=== PATIENT | male | born 1975 | race Caucasian/White ===

== ENCOUNTER 2020-07-31 12:46 | Inpatient (IN) | payer OTHER ==
[~2020-07-31] VITALS: Ht 185.4 cm; Wt 89.4 kg
[~2020-07-31 12:46] MED LIST: CARAFATE1 GM PO; CARVEDILOL12.5 MG PO; CATAPRES0.1 MG PO; CREON 12,000 U1 EACH PO; GEMFIBROZIL600 MG PO; HABITROL7 MG TOP; IBUPROFEN800 MG PO; LANTUS **100 UNITS/ SC; LANTUS100 UNIT/1 SC; LOPID600 MG PO; M.V.I. ADULT VIA5 ML PO; MEN UNDER 50 M1 EACH PO; NORCO 5-325 TA1 EACH PO; NORVASC5 MG PO; NOVOLOG; NOVOLOG VI100 UNIT/1 SC; OMEPRAZOLE40 MG PO; ONDANSETRON HCL4 MG PO; ONDANSETRON ODT4 MG PO; PERCOCET 10-321 EACH PO; PHENERGAN25 M1 PO; PRILOSEC20 MG PO; PRINIVIL20 MG PO; TOPROL XL 50 MG50 MG PO; TRAMADOL HCL50 MG PO; TRESIBA FL100 UNIT/1 SC; TRESIBA100 UNIT/1 SC; VITAMIN D5000 UNIT PO; ZOFRAN4 MG PO; [UNRECOGNIZED DRUG - OTHER] PO
[2020-07-31 13:31] LABS: BASOPHIL 0.7 % (0-2); EOSINOPHIL 2.5 % (0-5); HCT 44.1 % (42.0-52.0); HGB 14.4 g/dl (13.2-18.0); LYMPHOCYTE 24.7 % (15-48); MCH 27.8 pg (25.0-31.0); MCHC 32.7 g/dL (32.0-36.0); MCV 85.1 fL (78.0-100.0); MONOCYTE 8.8 % (0-12); MPV 10.3 fL (6.0-9.5); NEUTROPHIL 63.1 % (41-80); NRBC 0; PLT 194 K/uL (150-400); RBC 5.18 M/uL (4.70-6.00); WBC 8.9 K/uL (4.0-10.5)
[2020-07-31 14:05] LABS: BILIRUBIN - TOTAL 0.8 mg/dL (0.2-1.0); BUN/CREAT RATIO (CALC) 17.6 RATIO; CREATININE 0.68 mg/dL (0.67-1.17); GLOBULIN (CALCULATION) 3.9 g/dL; POTASSIUM 3.3 mmol/L (3.5-5.1); TOTAL PROTEIN 6.9 g/dL (6.4-8.2)
[2020-07-31 14:19] LABS: BILIRUBIN 2+ mg/dL (NEGATIVE); BLOOD NEGATIVE Ery/uL (NEGATIVE); CLARITY CLEAR (CLEAR); GLUCOSE (U) TRACE mg/dL (NORMAL); LEUKOCYTES NEGATIVE Leu/uL (NEGATIVE); NITRITE POSITIVE (NEGATIVE); PROTEIN 1+ mg/dL (NEGATIVE); SPECIFIC GRAVITY >=1.030 (1.001-1.030)
[2020-07-31 14:24] LABS: COLOR AMBER (YELLOW)
[2020-07-31 14:26] LABS: BACTERIA TRACE; MUCOUS LARGE; SQUAMOUS EPITHELIAL CELLS RARE; URINARY WBC RARE
[2020-07-31 18:01] LABS: MARIJUANA (THC) POSITIVE (NEGATIVE); OXYCODONE POSITIVE (NEGATIVE)
[2020-07-31 18:02] LABS: AMPHETAMINES NEGATIVE (NEGATIVE); BARBITURATES NEGATIVE (NEGATIVE); ECSTASY (MDMA) NEGATIVE (NEGATIVE); METHADONE NEGATIVE (NEGATIVE); OPIATES NEGATIVE (NEGATIVE)
[2020-08-01 04:03] LABS: EOSINOPHIL 6.2 % (0-5); HCT 39.1 % (42.0-52.0); HGB 12.7 g/dl (13.2-18.0); LYMPHOCYTE 41.8 % (15-48); MCH 28.1 pg (25.0-31.0); MCHC 32.5 g/dL (32.0-36.0); MCV 86.5 fL (78.0-100.0); MONOCYTE 10.9 % (0-12); MPV 10.5 fL (6.0-9.5); NEUTROPHIL 39.9 % (41-80); NRBC 0; PLT 148 K/uL (150-400); RBC 4.52 M/uL (4.70-6.00); RDW 16.7 % (11.5-14.0); WBC 6.2 K/uL (4.0-10.5)
[2020-08-01 04:17] LABS: ALBUMIN 2.5 g/dL (3.4-5.0); BILIRUBIN - TOTAL 0.5 mg/dL (0.2-1.0); BUN/CREAT RATIO (CALC) 15.5 RATIO; CREATININE 0.71 mg/dL (0.67-1.17); GLOBULIN (CALCULATION) 3.3 g/dL; MAGNESIUM 1.4 mg/dL (1.8-2.4); POTASSIUM 3.2 mmol/L (3.5-5.1); TOTAL PROTEIN 5.8 g/dL (6.4-8.2)
[2020-08-02 05:43] LABS: BASOPHIL 1.2 % (0-2); EOSINOPHIL 6.9 % (0-5); HCT 39.2 % (42.0-52.0); HGB 12.6 g/dl (13.2-18.0); LYMPHOCYTE 44.8 % (15-48); MCHC 32.1 g/dL (32.0-36.0); MCV 87.1 fL (78.0-100.0); MONOCYTE 11.2 % (0-12); MPV 10.6 fL (6.0-9.5); NEUTROPHIL 35.7 % (41-80); NRBC 0; PLT 131 K/uL (150-400); RDW 16.4 % (11.5-14.0); WBC 5.1 K/uL (4.0-10.5)
[2020-08-02 06:10] LABS: ALBUMIN 2.4 g/dL (3.4-5.0); BILIRUBIN - TOTAL 0.5 mg/dL (0.2-1.0); BUN/CREAT RATIO (CALC) 7.7 RATIO; CREATININE 0.65 mg/dL (0.67-1.17); GLOBULIN (CALCULATION) 3.4 g/dL; POTASSIUM 3.8 mmol/L (3.5-5.1); TOTAL PROTEIN 5.8 g/dL (6.4-8.2)
[2020-08-04] MEDS ORDERED: CREON DR 24,001 EACH PO (11:44)
[2020-08-04] MEDS ORDERED: PERCOCET 5-3251 EACH PO ×2 (11:45→11:47)
[2020-08-04 17:11] LABS: IMMUNOGLOBULIN G, QN, SERUM 999 mg/dL (603-1613)
[2020-08-05 16:09] LABS: CHLAMYDIA TRACHOMATIS, NAA Negative (Negative); NEISSERIA GONORRHOEAE, NAA Negative (Negative)
== END 2020-08-04 13:03 | disposition home or self-care (01) | DRG 439 ==
LOC: FER 12:46 → FMS 17:20
PROVIDERS: Emergency Medicine; Nurse Practitioner Family; ADMIT Allergy & Immunology Allergy
DX: K85.80 Other acute pancreatitis without necrosis or infection (principal); N39.0 Urinary tract infection, site not specified; K86.3 Pseudocyst of pancreas; E10.9 Type 1 diabetes mellitus without complications; Z79.899 Other long term (current) drug therapy; Z79.4 Long term (current) use of insulin; K76.0 Fatty (change of) liver, not elsewhere classified; K86.1 Other chronic pancreatitis; Z20.822 Contact with and (suspected) exposure to COVID-19
CPT/HCPCS: 36415; 74181; 76705; 80053; 80061; 80305; 81001; 82150; 82784; 82787; 82962; 83036; 83690; 83735; 85025; 86140; 87088; 87491; 87591; C9113; G0480; J0696; J1170; J1650; J1885; J2270; J2405; J3480; J7030; J7042; J7120; Q9967; U0002

== ENCOUNTER 2020-09-16 23:47 | Inpatient (IN) | payer OTHER ==
[~2020-09-16] VITALS: Ht 185.4 cm; Wt 87.3 kg
[~2020-09-16 23:47] MED LIST changes: +CREON DR 24,001 EACH PO; +PERCOCET 5-3251 EACH PO
[2020-09-17 00:53] LABS: BASOPHIL 0.7 % (0-2); BILIRUBIN 2+ mg/dL (NEGATIVE); BLOOD NEGATIVE Ery/uL (NEGATIVE); CLARITY CLEAR (CLEAR); COLOR YELLOW (YELLOW); GLUCOSE (U) NORMAL (NORMAL); HCT 47.4 % (42.0-52.0); HGB 15.4 g/dl (13.2-18.0); LEUKOCYTES NEGATIVE Leu/uL (NEGATIVE); LYMPHOCYTE 24.7 % (15-48); MCH 28.1 pg (25.0-31.0); MCHC 32.5 g/dL (32.0-36.0); MCV 86.3 fL (78.0-100.0); MONOCYTE 8.9 % (0-12); MPV 9.7 fL (6.0-9.5); NEUTROPHIL 64.4 % (41-80); NITRITE NEGATIVE (NEGATIVE); NRBC 0; PLT 262 K/uL (150-400); PROTEIN 1+ mg/dL (NEGATIVE); RBC 5.49 M/uL (4.70-6.00); RDW 15.1 % (11.5-14.0); SPECIFIC GRAVITY >=1.030 (1.001-1.030); UROBILINOGEN 0.2 mg/dL (0.2-1.0); WBC 11.4 K/uL (4.0-10.5)
[2020-09-17 01:00] LABS: BACTERIA TRACE; URINARY RBC RARE
[2020-09-17 01:06] LABS: ALBUMIN 3.6 g/dL (3.4-5.0); BUN/CREAT RATIO (CALC) 16.8 RATIO; CREATININE 1.31 mg/dL (0.67-1.17); GLOBULIN (CALCULATION) 5.5 g/dL; POTASSIUM 4.7 mmol/L (3.5-5.1); TOTAL PROTEIN 9.1 g/dL (6.4-8.2)
[2020-09-17 03:48] LABS: BUN/CREAT RATIO (CALC) 18.9 RATIO; CREATININE 1.27 mg/dL (0.67-1.17); POTASSIUM 4.5 mmol/L (3.5-5.1)
[2020-09-17] MEDS ORDERED: TRESIBA FL200 UNIT/1 SC (06:10)
[2020-09-17] MEDS ORDERED: NOVOLOG VI100 UNIT/1 SQ (06:10)
[2020-09-18 05:09] LABS: HCT 37.9 % (42.0-52.0); MCH 28.8 pg (25.0-31.0); MCHC 34.3 g/dL (32.0-36.0); MPV 9.7 fL (6.0-9.5); RBC 4.51 M/uL (4.70-6.00); RDW 14.6 % (11.5-14.0); WBC 9.4 K/uL (4.0-10.5)
[2020-09-18 05:34] LABS: BUN/CREAT RATIO (CALC) 11.7 RATIO; CREATININE 0.6 mg/dL (0.67-1.17); POTASSIUM 3.4 mmol/L (3.5-5.1)
--- NOTE | 2020-09-19 17:51 | NUR ---
[address] BANDA REGARDING PATIENT CONTINUED C/O PAIN. CURRENTLY STILL 12/10. REQUESTED ZOFRAN WHICH WAS GIVEN FOR C/O NAUSEA. DR. BANDA STATES HE WILL ORDER A GI COCKTAIL. ASKED IF PATIENT'S HR IS ELEVATED - CURRENTLY 71 AND ASKED IF PATIENT IS REQUESTING PAIN MEDS WHEN DUE. PATIENT DOES CALL OUT APPROXIMATELY AT THE 4 HOUR JAMMIE WHEN MEDICATION CAN BE GIVEN.
[2020-09-20 04:00] LABS: HGB 12.8 g/dl (13.2-18.0); MCH 28.8 pg (25.0-31.0); MCHC 34.6 g/dL (32.0-36.0); MCV 83.3 fL (78.0-100.0); MPV 10.5 fL (6.0-9.5); RBC 4.44 M/uL (4.70-6.00); RDW 14.4 % (11.5-14.0); WBC 6.3 K/uL (4.0-10.5)
[2020-09-20 04:21] LABS: BUN/CREAT RATIO (CALC) 3.5 RATIO; CREATININE 0.57 mg/dL (0.67-1.17); POTASSIUM 2.9 mmol/L (3.5-5.1)
[2020-09-20] MEDS ORDERED: ZOFRAN4 M1 PO (09:25)
== END 2020-09-20 10:30 | disposition home or self-care (01) | DRG 438 ==
LOC: FER 23:47 → FICU 09-17 04:22 → FTCU 09-19 13:14
PROVIDERS: Emergency Medicine Emergency Medical Services; Hospitalist; ADMIT Internal Medicine
DX: K85.80 Other acute pancreatitis without necrosis or infection (principal); E10.10 Type 1 diabetes mellitus with ketoacidosis without coma; K86.3 Pseudocyst of pancreas; K86.1 Other chronic pancreatitis; I10 Essential (primary) hypertension; E78.5 Hyperlipidemia, unspecified; F17.210 Nicotine dependence, cigarettes, uncomplicated; K76.0 Fatty (change of) liver, not elsewhere classified; Z98.890 Other specified postprocedural states; Z79.899 Other long term (current) drug therapy
CPT/HCPCS: 36415; 36600; 80048; 80053; 81001; 82150; 82803; 82962; 83605; 83615; 83690; 84145; 85025; 94010; 94762; C9113; J1170; J1650; J1885; J2405; J2550; J7030; Q0169; Q9967; U0002

== ENCOUNTER 2020-10-24 09:06 | Inpatient (IN) | payer OTHER ==
[~2020-10-24 09:06] MED LIST changes: +NOVOLOG VI100 UNIT/1 SQ; +TRESIBA FL200 UNIT/1 SC; +ZOFRAN4 M1 PO
[2020-10-24 09:52] LABS: BASOPHIL 0.6 % (0-2); HCT 41.9 % (42.0-52.0); HGB 14.1 g/dl (13.2-18.0); LYMPHOCYTE 33.9 % (15-48); MCH 28.3 pg (25.0-31.0); MCHC 33.7 g/dL (32.0-36.0); MONOCYTE 10.9 % (0-12); MPV 10.2 fL (6.0-9.5); NEUTROPHIL 49.4 % (41-80); NRBC 0; PLT 146 K/uL (150-400); RBC 4.99 M/uL (4.70-6.00); RDW 19.6 % (11.5-14.0); WBC 6.4 K/uL (4.0-10.5)
[2020-10-24 10:04] LABS: ALBUMIN 2.4 g/dL (3.4-5.0); BILIRUBIN - TOTAL 0.9 mg/dL (0.2-1.0); BUN/CREAT RATIO (CALC) 10.8 RATIO; CREATININE 0.74 mg/dL (0.67-1.17); GLOBULIN (CALCULATION) 3.7 g/dL; POTASSIUM 3.6 mmol/L (3.5-5.1); TOTAL PROTEIN 6.1 g/dL (6.4-8.2)
[2020-10-24 10:39] LABS: BILIRUBIN 2+ mg/dL (NEGATIVE); BLOOD NEGATIVE Ery/uL (NEGATIVE); CLARITY CLEAR (CLEAR); COLOR AMBER (YELLOW); GLUCOSE (U) NORMAL (NORMAL); LEUKOCYTES NEGATIVE Leu/uL (NEGATIVE); NITRITE POSITIVE (NEGATIVE); PROTEIN 2+ mg/dL (NEGATIVE); SPECIFIC GRAVITY 1.025 (1.001-1.030)
[2020-10-24 10:44] LABS: BACTERIA TRACE
[2020-10-24 10:45] LABS: MUCOUS LARGE
[2020-10-24 12:52] LABS: CORONAVIRUS 2019 SARS-COV-2 NEGATIVE (NEGATIVE); INFLUENZA A NAA NEGATIVE (NEGATIVE)
[2020-10-25 05:38] LABS: BASOPHIL 0.6 % (0-2); EOSINOPHIL 7.7 % (0-5); HCT 38.1 % (42.0-52.0); HGB 12.6 g/dl (13.2-18.0); LYMPHOCYTE 42.3 % (15-48); MCH 28.1 pg (25.0-31.0); MCHC 33.1 g/dL (32.0-36.0); MCV 84.9 fL (78.0-100.0); MONOCYTE 8.5 % (0-12); MPV 10.1 fL (6.0-9.5); NEUTROPHIL 40.7 % (41-80); NRBC 0; PLT 117 K/uL (150-400); RBC 4.49 M/uL (4.70-6.00); RDW 18.5 % (11.5-14.0); WBC 5.1 K/uL (4.0-10.5)
[2020-10-25 06:08] LABS: BILIRUBIN - TOTAL 0.7 mg/dL (0.2-1.0); BUN/CREAT RATIO (CALC) 8.7 RATIO; CREATININE 0.69 mg/dL (0.67-1.17); FOLIC ACID (SERUM) 17.7 ng/mL (8.6-58.9); MAGNESIUM 0.9 mg/dL (1.8-2.4); POTASSIUM 2.8 mmol/L (3.5-5.1)
--- NOTE | 2020-10-25 14:33 | NUR ---
[facility] will not allow documentation of humulin R related to technology error. HUMULIN R 6 UNITS GIVEN AT 1423. VERIFIED AND COSIGNED BY PAGE OCONNOR. GLUCOSE 177, INSULIN ADMIT PER ORDER.
[2020-10-25 17:59] LABS: BUN/CREAT RATIO (CALC) 7.6 RATIO; CREATININE 0.66 mg/dL (0.67-1.17); MAGNESIUM 1.4 mg/dL (1.8-2.4); POTASSIUM 3.8 mmol/L (3.5-5.1)
--- NOTE | 2020-10-26 03:11 | NUR ---
patient has refused several blood sugar checks this shift, refused his insulin at HS. blood sugar this am at 0300 was 242. MANAGER FINANCE notified.
[2020-10-26 06:49] LABS: BASOPHIL 0.9 % (0-2); EOSINOPHIL 5.8 % (0-5); HCT 37.7 % (42.0-52.0); HGB 12.3 g/dl (13.2-18.0); LYMPHOCYTE 41.7 % (15-48); MCHC 32.6 g/dL (32.0-36.0); MCV 85.9 fL (78.0-100.0); MONOCYTE 9.6 % (0-12); MPV 10.1 fL (6.0-9.5); NEUTROPHIL 41.8 % (41-80); NRBC 0; PLT 110 K/uL (150-400); RBC 4.39 M/uL (4.70-6.00); RDW 18.4 % (11.5-14.0); WBC 4.5 K/uL (4.0-10.5)
[2020-10-26 06:51] LABS: BUN/CREAT RATIO (CALC) 6.1 RATIO; CREATININE 0.66 mg/dL (0.67-1.17); MAGNESIUM 1.6 mg/dL (1.8-2.4); POTASSIUM 4.6 mmol/L (3.5-5.1)
--- NOTE | 2020-10-26 15:33 | NUR ---
10/26/20 Mr. Portillo and his girlfriend share a home together. He is currently unemployed, yet reports to have savings to support himself. Mr. Portillo has mainained his sobriety since Jul 2019. - No discharge needs are anticipated.
--- NOTE | 2020-10-26 17:23 | NUR ---
PATIENT ARRIVED FROM TCU, VERY COOPERATIVE AND PLEASENT. DID BECOME UPSET WHEN HE DID NOT GET HIS VAPES TO USE IN ROOM IMMEDIATELY. EXPLAINED THAT I HAD TO WAIT FOR PHARMACY TO BRING OUT. ONCE THEY WERE BROUGHT THEY WERE SCANNED AND GIVEN TO PATIENT
[2020-10-27] MEDS ORDERED: PERCOCET 5-3251 EACH PO (11:58)
[2020-10-27] MEDS ORDERED: ONDANSETRON ODT4 MG PO (11:58)
== END 2020-10-27 12:56 | disposition home or self-care (01) | DRG 439 ==
LOC: FER 09:06 → FMS 12:02 → FICU 10-25 02:38 → FTCU 10-25 15:56 → FMS 10-26 09:57
PROVIDERS: Emergency Medicine; ADMIT Internal Medicine
DX: K85.90 Acute pancreatitis without necrosis or infection, unspecified (principal); K86.3 Pseudocyst of pancreas; N39.0 Urinary tract infection, site not specified; K86.1 Other chronic pancreatitis; F17.210 Nicotine dependence, cigarettes, uncomplicated; E11.9 Type 2 diabetes mellitus without complications; I10 Essential (primary) hypertension; Z20.822 Contact with and (suspected) exposure to COVID-19; E78.5 Hyperlipidemia, unspecified; K76.0 Fatty (change of) liver, not elsewhere classified; E87.6 Hypokalemia; E83.42 Hypomagnesemia; E83.51 Hypocalcemia; Z98.890 Other specified postprocedural states; Z79.899 Other long term (current) drug therapy
CPT/HCPCS: 36415; 80048; 80053; 81001; 82150; 82746; 82962; 83605; 83690; 83735; 84100; 85025; 87088; 87339; 94010; C9113; J0610; J0696; J1170; J1650; J2270; J2405; J2550; J3411; J3475; J3480; J7030; J7070; Q9967; U0002

== ENCOUNTER 2020-11-05 13:51 | Inpatient (IN) | payer OTHER ==
[2020-11-05 16:25] LABS: BASOPHIL 0.9 % (0-2); EOSINOPHIL 1.4 % (0-5); HCT 50.3 % (42.0-52.0); HGB 16.8 g/dl (13.2-18.0); LYMPHOCYTE 40.8 % (15-48); MCH 28.4 pg (25.0-31.0); MCHC 33.4 g/dL (32.0-36.0); MCV 85.1 fL (78.0-100.0); MONOCYTE 8.1 % (0-12); MPV 9.5 fL (6.0-9.5); NEUTROPHIL 48.3 % (41-80); NRBC 0; PLT 351 K/uL (150-400); RBC 5.91 M/uL (4.70-6.00); RDW 20.6 % (11.5-14.0); WBC 7.7 K/uL (4.0-10.5)
[2020-11-05 17:42] LABS: ALBUMIN 2.9 g/dL (3.4-5.0); BILIRUBIN - TOTAL 0.5 mg/dL (0.2-1.0); CREATININE 0.78 mg/dL (0.67-1.17); GLOBULIN (CALCULATION) 5.2 g/dL; POTASSIUM 3.7 mmol/L (3.5-5.1); TOTAL PROTEIN 8.1 g/dL (6.4-8.2)
--- NOTE | 2020-11-06 00:14 | NUR ---
2315 REPORT RECEIVED FROM Serg DIEHL RN.
[2020-11-06 06:40] LABS: BASOPHIL 1.5 % (0-2); EOSINOPHIL 5.4 % (0-5); HCT 40.4 % (42.0-52.0); HGB 13.2 g/dl (13.2-18.0); LYMPHOCYTE 36.3 % (15-48); MCH 28.5 pg (25.0-31.0); MCHC 32.7 g/dL (32.0-36.0); MCV 87.3 fL (78.0-100.0); MONOCYTE 10.7 % (0-12); MPV 9.4 fL (6.0-9.5); NRBC 0; PLT 224 K/uL (150-400); RBC 4.63 M/uL (4.70-6.00); WBC 6.7 K/uL (4.0-10.5)
[2020-11-06 06:59] LABS: ALBUMIN 1.9 g/dL (3.4-5.0); BILIRUBIN - TOTAL 0.6 mg/dL (0.2-1.0); BUN/CREAT RATIO (CALC) 8.6 RATIO; CREATININE 0.7 mg/dL (0.67-1.17); GLOBULIN (CALCULATION) 3.5 g/dL; POTASSIUM 3.9 mmol/L (3.5-5.1)
[2020-11-06 07:00] LABS: TOTAL PROTEIN 5.4 g/dL (6.4-8.2)
[2020-11-06 13:13] LABS: HCT 38.9 % (42.0-52.0); HGB 12.6 g/dl (13.2-18.0); MCH 28.4 pg (25.0-31.0); MCHC 32.4 g/dL (32.0-36.0); MCV 87.8 fL (78.0-100.0); MPV 9.4 fL (6.0-9.5); RBC 4.43 M/uL (4.70-6.00); RDW 19.7 % (11.5-14.0); WBC 6.6 K/uL (4.0-10.5)
[2020-11-07 05:59] LABS: BASOPHIL 1.3 % (0-2); EOSINOPHIL 8.6 % (0-5); HCT 37.2 % (42.0-52.0); HGB 12.1 g/dl (13.2-18.0); LYMPHOCYTE 41.8 % (15-48); MCH 28.7 pg (25.0-31.0); MCHC 32.5 g/dL (32.0-36.0); MCV 88.2 fL (78.0-100.0); MONOCYTE 10.3 % (0-12); NEUTROPHIL 37.8 % (41-80); NRBC 0; PLT 167 K/uL (150-400); RBC 4.22 M/uL (4.70-6.00); RDW 18.9 % (11.5-14.0); WBC 5.5 K/uL (4.0-10.5)
[2020-11-07 06:15] LABS: BUN/CREAT RATIO (CALC) 8.8 RATIO; CREATININE 0.68 mg/dL (0.67-1.17); MAGNESIUM 1.1 mg/dL (1.8-2.4); PHOSPHORUS 3.4 mg/dL (2.6-4.7); POTASSIUM 3.5 mmol/L (3.5-5.1)
[2020-11-08 05:43] LABS: BASOPHIL 1.2 % (0-2); EOSINOPHIL 7.4 % (0-5); HCT 38.6 % (42.0-52.0); HGB 12.6 g/dl (13.2-18.0); LYMPHOCYTE 44.1 % (15-48); MCH 28.2 pg (25.0-31.0); MCHC 32.6 g/dL (32.0-36.0); MCV 86.4 fL (78.0-100.0); MONOCYTE 10.7 % (0-12); MPV 10.1 fL (6.0-9.5); NEUTROPHIL 36.4 % (41-80); NRBC 0; PLT 171 K/uL (150-400); RBC 4.47 M/uL (4.70-6.00); RDW 17.9 % (11.5-14.0); WBC 5.8 K/uL (4.0-10.5)
[2020-11-08 06:03] LABS: BUN/CREAT RATIO (CALC) 4.5 RATIO; CREATININE 0.66 mg/dL (0.67-1.17); MAGNESIUM 1.3 mg/dL (1.8-2.4); PHOSPHORUS 3.6 mg/dL (2.6-4.7); POTASSIUM 3.6 mmol/L (3.5-5.1)
--- NOTE | 2020-11-08 13:24 | NUR ---
DISCHARGE ORDERS BY DR. ARIZMENDI, PT IS OFF IV FLUIDS SINCE THIS AM, APPETITE IS GOOD. ATE 100% OF BREAKFAST AND LUNCH. 1200 GLUCOSE 388, D5NS AT 150CC/HR STOPPED PER DR. HENRY. 5 UNITS REGULAR INSULIN GIVEN TO PATIENT. PATIENT UPSET, STATES WE ARE NOT CONTROLLING HIS SUGAR WELL ENOUGH. PT HAS HISTORY OF VERY LABILE BLOOD GLUCOSE. DOWN TO 27 2 NIGHTS PRIOR. RE CHECK OF GLUCOSE 1 HOUR POST INSULIN IS 260. PT AGREEABLE AND APOLIGIZED. PT READY FOR DISCHARGE, EDUCATED ON MEDICATIONS. PT HAS NO NEW MEDICATIONS, NO QUESTIONS PER PATIENT. UNDERSTANDING OF FOLLOW UP APPT NEED WITH PCP. STATES "I HAVE AN APPT ALREADY ON MONDAY" PIV FROM [facility] REMOVED AND DRESSED WITH GAUZE AND TAPE. PT [id number] AND IS AWAITING RIDE FROM FAMILY MEMBER.
[2020-11-08] MEDS ORDERED: MAG-OXIDE 400M400 MG PO (18:06)
== END 2020-11-08 13:36 | disposition home or self-care (01) | DRG 439 ==
LOC: FER 13:51 → FMS 19:14
PROVIDERS: Nurse Practitioner; Nurse Practitioner Family; ADMIT Internal Medicine
DX: K85.90 Acute pancreatitis without necrosis or infection, unspecified (principal); K86.3 Pseudocyst of pancreas; K86.1 Other chronic pancreatitis; E10.649 Type 1 diabetes mellitus with hypoglycemia without coma; I10 Essential (primary) hypertension; K21.9 Gastro-esophageal reflux disease without esophagitis; E83.42 Hypomagnesemia; F17.200 Nicotine dependence, unspecified, uncomplicated; E78.5 Hyperlipidemia, unspecified; K76.0 Fatty (change of) liver, not elsewhere classified; Z20.822 Contact with and (suspected) exposure to COVID-19; Z79.899 Other long term (current) drug therapy; Z98.890 Other specified postprocedural states
CPT/HCPCS: 36415; 80048; 80053; 80061; 82150; 82962; 83690; 83735; 84100; 85025; C9113; J0610; J1170; J1650; J2405; J3475; J7030; J7042; J7120; Q9967; U0002

== ENCOUNTER 2020-12-24 10:00 | Emergency (ER) | payer OTHER ==
[~2020-12-24 10:00] MED LIST changes: +MAG-OXIDE 400M400 MG PO
[2020-12-24 10:37] LABS: BASOPHIL 0.8 % (0-2); EOSINOPHIL 2.1 % (0-5); HCT 40.9 % (42.0-52.0); HGB 13.8 g/dl (13.2-18.0); LYMPHOCYTE 35.7 % (15-48); MCH 29.2 pg (25.0-31.0); MCHC 33.7 g/dL (32.0-36.0); MCV 86.7 fL (78.0-100.0); MONOCYTE 13.7 % (0-12); MPV 9.7 fL (6.0-9.5); NEUTROPHIL 46.9 % (41-80); NRBC 0; PLT 229 K/uL (150-400); RBC 4.72 M/uL (4.70-6.00); RDW 17.5 % (11.5-14.0); WBC 6.6 K/uL (4.0-10.5)
[2020-12-24 10:43] LABS: BILIRUBIN 1+ mg/dL (NEGATIVE); BLOOD NEGATIVE Ery/uL (NEGATIVE); CLARITY CLEAR (CLEAR); GLUCOSE (U) NORMAL (NORMAL); LEUKOCYTES NEGATIVE Leu/uL (NEGATIVE); NITRITE NEGATIVE (NEGATIVE); PROTEIN 1+ mg/dL (NEGATIVE); SPECIFIC GRAVITY 1.025 (1.001-1.030)
[2020-12-24 10:47] LABS: COLOR AMBER (YELLOW)
[2020-12-24 10:51] LABS: BACTERIA TRACE; SQUAMOUS EPITHELIAL CELLS RARE
[2020-12-24 10:52] LABS: GRANULAR CASTS TRACE; MUCOUS TRACE; SPERM PRESENT
[2020-12-24 10:57] LABS: ALBUMIN 2.4 g/dL (3.4-5.0); BILIRUBIN - TOTAL 0.4 mg/dL (0.2-1.0); BUN/CREAT RATIO (CALC) 10.8 RATIO; CREATININE 0.74 mg/dL (0.67-1.17); GLOBULIN (CALCULATION) 3.9 g/dL; POTASSIUM 3.8 mmol/L (3.5-5.1); TOTAL PROTEIN 6.3 g/dL (6.4-8.2)
== END 2020-12-24 15:53 | disposition home or self-care (01) ==
LOC: FER 10:00
PROVIDERS: Emergency Medicine
DX: K86.1 Other chronic pancreatitis (principal); E10.9 Type 1 diabetes mellitus without complications; F17.290 Nicotine dependence, other tobacco product, uncomplicated
CPT/HCPCS: 36415; 80053; 81001; 82009; 82150; 83690; 85025; J1170; J2405; J7030

== ENCOUNTER 2021-01-10 22:29 | Inpatient (IN) | payer OTHER ==
[~2021-01-10] VITALS: Ht 185.4 cm; Wt 79.5 kg
[2021-01-11 00:08] LABS: BASOPHIL 0.7 % (0-2); EOSINOPHIL 0.8 % (0-5); HCT 42.9 % (42.0-52.0); HGB 14.6 g/dl (13.2-18.0); LYMPHOCYTE 25.8 % (15-48); MCH 29.6 pg (25.0-31.0); MCV 86.8 fL (78.0-100.0); MONOCYTE 15.1 % (0-12); MPV 9.6 fL (6.0-9.5); NEUTROPHIL 57.4 % (41-80); NRBC 0; PLT 192 K/uL (150-400); RBC 4.94 M/uL (4.70-6.00); RDW 17.3 % (11.5-14.0); WBC 8.5 K/uL (4.0-10.5)
[2021-01-11 00:21] LABS: ALBUMIN 2.4 g/dL (3.4-5.0); BILIRUBIN - TOTAL 0.6 mg/dL (0.2-1.0); BUN/CREAT RATIO (CALC) 11.1 RATIO; CREATININE 0.72 mg/dL (0.67-1.17); GLOBULIN (CALCULATION) 4.4 g/dL; POTASSIUM 2.8 mmol/L (3.5-5.1); TOTAL PROTEIN 6.8 g/dL (6.4-8.2)
[2021-01-11 00:31] LABS: LACTIC ACID 1.2 mmol/L (0.4-1.9)
[2021-01-11 01:57] LABS: AMPHETAMINES NEGATIVE (NEGATIVE); BARBITURATES NEGATIVE (NEGATIVE); ECSTASY (MDMA) NEGATIVE (NEGATIVE); MARIJUANA (THC) POSITIVE (NEGATIVE); METHADONE NEGATIVE (NEGATIVE); OPIATES POSITIVE (NEGATIVE); OXYCODONE NEGATIVE (NEGATIVE)
[2021-01-11] MEDS ORDERED: NORVASC10 MG PO (04:40)
[2021-01-11] MEDS ORDERED: PRINIVIL20 M1 PO (04:41)
[2021-01-11 09:08] LABS: BILIRUBIN NEGATIVE (NEGATIVE); BLOOD NEGATIVE Ery/uL (NEGATIVE); CLARITY CLEAR (CLEAR); COLOR YELLOW (YELLOW); GLUCOSE (U) TRACE mg/dL (NORMAL); LEUKOCYTES NEGATIVE Leu/uL (NEGATIVE); NITRITE NEGATIVE (NEGATIVE); PROTEIN TRACE (LOW) mg/dL (NEGATIVE)
[2021-01-11 09:26] LABS: CALCIUM OXALATE CRYSTALS MODERATE
[2021-01-11 09:29] LABS: URINARY RBC RARE; URINARY WBC RARE
[2021-01-11 09:53] LABS: MAGNESIUM 1.8 mg/dL (1.8-2.4); POTASSIUM 3.1 mmol/L (3.5-5.1)
[2021-01-12 05:57] LABS: BASOPHIL 0.6 % (0-2); EOSINOPHIL 2.8 % (0-5); HCT 37.3 % (42.0-52.0); HGB 12.5 g/dl (13.2-18.0); LYMPHOCYTE 27.6 % (15-48); MCH 29.2 pg (25.0-31.0); MCHC 33.5 g/dL (32.0-36.0); MCV 87.1 fL (78.0-100.0); MONOCYTE 10.9 % (0-12); MPV 10.2 fL (6.0-9.5); NEUTROPHIL 57.8 % (41-80); NRBC 0; PLT 132 K/uL (150-400); RBC 4.28 M/uL (4.70-6.00); RDW 16.4 % (11.5-14.0); WBC 7.1 K/uL (4.0-10.5)
[2021-01-12 07:10] LABS: ALBUMIN 1.9 g/dL (3.4-5.0); BILIRUBIN - TOTAL 0.5 mg/dL (0.2-1.0); BUN/CREAT RATIO (CALC) 15.3 RATIO; CREATININE 0.59 mg/dL (0.67-1.17); GLOBULIN (CALCULATION) 3.6 g/dL; MAGNESIUM 1.5 mg/dL (1.8-2.4); PHOSPHORUS 3.2 mg/dL (2.6-4.7); POTASSIUM 3.6 mmol/L (3.5-5.1); TOTAL PROTEIN 5.5 g/dL (6.4-8.2)
[2021-01-13 06:25] LABS: BASOPHIL 0.6 % (0-2); EOSINOPHIL 2.1 % (0-5); HCT 41.2 % (42.0-52.0); HGB 13.3 g/dl (13.2-18.0); LYMPHOCYTE 28.5 % (15-48); MCH 28.9 pg (25.0-31.0); MCHC 32.3 g/dL (32.0-36.0); MCV 89.6 fL (78.0-100.0); MPV 10.6 fL (6.0-9.5); NEUTROPHIL 59.5 % (41-80); NRBC 0; PLT 121 K/uL (150-400); RDW 15.9 % (11.5-14.0); WBC 7.2 K/uL (4.0-10.5)
[2021-01-13 06:41] LABS: BUN/CREAT RATIO (CALC) 12.3 RATIO; CREATININE 0.57 mg/dL (0.67-1.17); MAGNESIUM 1.7 mg/dL (1.8-2.4); POTASSIUM 3.9 mmol/L (3.5-5.1)
[2021-01-15 06:32] LABS: BUN/CREAT RATIO (CALC) 10.3 RATIO; CREATININE 0.58 mg/dL (0.67-1.17); POTASSIUM 4.7 mmol/L (3.5-5.1)
[2021-01-15] MEDS ORDERED: NORCO 5-325 TA1 EACH PO (15:06)
[2021-01-15] MEDS ORDERED: PHENERGAN25 M1 PO (15:06)
== END 2021-01-15 15:35 | disposition home or self-care (01) | DRG 439 ==
LOC: FER 22:29 → FMS 01-11 03:17
PROVIDERS: Emergency Medicine; Nurse Practitioner; ADMIT Internal Medicine
DX: K85.90 Acute pancreatitis without necrosis or infection, unspecified (principal); K86.3 Pseudocyst of pancreas; K86.1 Other chronic pancreatitis; E10.9 Type 1 diabetes mellitus without complications; E83.42 Hypomagnesemia; D69.6 Thrombocytopenia, unspecified; E87.6 Hypokalemia; Z20.822 Contact with and (suspected) exposure to COVID-19; E78.5 Hyperlipidemia, unspecified; K76.0 Fatty (change of) liver, not elsewhere classified; F17.210 Nicotine dependence, cigarettes, uncomplicated; Z98.890 Other specified postprocedural states; Z79.899 Other long term (current) drug therapy
CPT/HCPCS: 36415; 80048; 80053; 80305; 81001; 82962; 83036; 83605; 83690; 83735; 84100; 84132; 85025; J1170; J1650; J2270; J2405; J3475; J3480; J7030; J7042; Q9967; U0002

== ENCOUNTER 2021-08-05 20:39 | Emergency (ER) | payer OTHER ==
[~2021-08-05 20:39] MED LIST changes: +NORVASC10 MG PO; +PRINIVIL20 M1 PO
[2021-08-05 21:29] LABS: BASOPHIL 0.2 % (0-2); EOSINOPHIL 0.2 % (0-5); HGB 16.2 g/dl (13.2-18.0); LYMPHOCYTE 38.1 % (15-48); MCH 31.3 pg (25.0-31.0); MCHC 33.8 g/dL (32.0-36.0); MCV 92.8 fL (78.0-100.0); MONOCYTE 7.4 % (0-12); MPV 11.3 fL (6.0-9.5); NEUTROPHIL 53.9 % (41-80); NRBC 0; RBC 5.17 M/uL (4.70-6.00); RDW 14.1 % (11.5-14.0); WBC 9.8 K/uL (4.0-10.5)
[2021-08-05 21:43] LABS: ALBUMIN 2.7 g/dL (3.4-5.0); BILIRUBIN - TOTAL 0.6 mg/dL (0.2-1.0); BUN/CREAT RATIO (CALC) 9.8 RATIO; CREATININE 0.61 mg/dL (0.67-1.17); GLOBULIN (CALCULATION) 3.9 g/dL; POTASSIUM 3.9 mmol/L (3.5-5.1); TOTAL PROTEIN 6.6 g/dL (6.4-8.2)
[2021-08-05 21:48] LABS: PLT 169 K/uL (150-400)
[2021-08-05] MEDS ORDERED: ONDANSETRON ODT4 MG PO (21:56)
[2021-08-05] MEDS ORDERED: OXY-IR 5MG5 MG PO (22:05)
== END 2021-08-05 22:46 | disposition home or self-care (01) ==
LOC: FER 20:39
PROVIDERS: Emergency Medicine
DX: R10.9 Unspecified abdominal pain (principal); R11.2 Nausea with vomiting, unspecified
CPT/HCPCS: 36415; 80053; 83690; 85025; J2405

== ENCOUNTER 2021-08-20 21:26 | Inpatient (IN) | payer OTHER ==
[~2021-08-20] VITALS: Ht 185.4 cm; Wt 67.6 kg
[~2021-08-20 21:26] MED LIST changes: +OXY-IR 5MG5 MG PO
[2021-08-20 22:00] LABS: BASOPHIL 0.7 % (0-2); EOSINOPHIL 0.1 % (0-5); HCT 44.5 % (42.0-52.0); LYMPHOCYTE 23.8 % (15-48); MCH 31.3 pg (25.0-31.0); MCHC 33.7 g/dL (32.0-36.0); MCV 92.9 fL (78.0-100.0); MONOCYTE 9.4 % (0-12); MPV 10.6 fL (6.0-9.5); NEUTROPHIL 65.7 % (41-80); NRBC 0; PLT 191 K/uL (150-400); RBC 4.79 M/uL (4.70-6.00); RDW 12.7 % (11.5-14.0); WBC 9.1 K/uL (4.0-10.5)
[2021-08-20 22:20] LABS: BILIRUBIN 1+ mg/dL (NEGATIVE); BLOOD NEGATIVE Ery/uL (NEGATIVE); CLARITY CLEAR (CLEAR); COLOR YELLOW (YELLOW); GLUCOSE (U) 2+ mg/dL (NORMAL); LEUKOCYTES NEGATIVE Leu/uL (NEGATIVE); NITRITE NEGATIVE (NEGATIVE); PROTEIN NEGATIVE (NEGATIVE); SPECIFIC GRAVITY >=1.030 (1.001-1.030); UROBILINOGEN 0.2 mg/dL (0.2-1.0)
[2021-08-20 22:21] LABS: ALBUMIN 2.7 g/dL (3.4-5.0); BILIRUBIN - TOTAL 0.9 mg/dL (0.2-1.0); BUN/CREAT RATIO (CALC) 23.5 RATIO; CREATININE 1.02 mg/dL (0.67-1.17); GLOBULIN (CALCULATION) 4.2 g/dL; POTASSIUM 4.7 mmol/L (3.5-5.1); TOTAL PROTEIN 6.9 g/dL (6.4-8.2)
[2021-08-21 02:15] LABS: BUN/CREAT RATIO (CALC) 22.9 RATIO; CREATININE 0.83 mg/dL (0.67-1.17); MAGNESIUM 1.3 mg/dL (1.8-2.4); PHOSPHORUS 3.6 mg/dL (2.6-4.7); POTASSIUM 4.2 mmol/L (3.5-5.1)
[2021-08-21 05:08] LABS: BUN/CREAT RATIO (CALC) 20.7 RATIO; CREATININE 0.82 mg/dL (0.67-1.17); POTASSIUM 3.9 mmol/L (3.5-5.1)
[2021-08-21 05:15] LABS: MAGNESIUM 2.5 mg/dL (1.8-2.4)
[2021-08-21 08:07] LABS: CREATININE 0.8 mg/dL (0.67-1.17); POTASSIUM 4.4 mmol/L (3.5-5.1)
[2021-08-21 12:18] LABS: BUN/CREAT RATIO (CALC) 19.7 RATIO; CREATININE 0.76 mg/dL (0.67-1.17)
[2021-08-21] MEDS ORDERED: IBUPROFEN800 MG PO (12:37)
[2021-08-21] MEDS ORDERED: LANTUS **100 UNITS/ SC (12:37)
[2021-08-21] MEDS ORDERED: HUMALOG 75100 UNIT/M SC (12:38)
--- NOTE | 2021-08-21 17:56 | NUR ---
PT WAS ON INSULIN GTT WHEN ARRIVING TO THE FLOOR HOURLY GLUCOSE CHECKS COMPLETED, GTT WAS STOPPED AT 1530 AFTER GETTING 10 UNITS LONG ACTING AND EATING LUNCH. 1600 GLUCOSE CHECK WAS 124 PT RECIEVED 4 UNITS
[2021-08-21 19:22] LABS: BUN/CREAT RATIO (CALC) 17.4 RATIO; CREATININE 0.69 mg/dL (0.67-1.17); POTASSIUM 3.7 mmol/L (3.5-5.1)
[2021-08-22 06:04] LABS: BASOPHIL 0.4 % (0-2); EOSINOPHIL 1.3 % (0-5); HCT 36.2 % (42.0-52.0); HGB 12.1 g/dl (13.2-18.0); LYMPHOCYTE 29.4 % (15-48); MCH 31.2 pg (25.0-31.0); MCHC 33.4 g/dL (32.0-36.0); MCV 93.3 fL (78.0-100.0); MONOCYTE 8.1 % (0-12); MPV 10.2 fL (6.0-9.5); NEUTROPHIL 60.7 % (41-80); NRBC 0; PLT 130 K/uL (150-400); RBC 3.88 M/uL (4.70-6.00); RDW 12.8 % (11.5-14.0); WBC 7.4 K/uL (4.0-10.5)
[2021-08-22 06:25] LABS: BUN/CREAT RATIO (CALC) 11.1 RATIO; CREATININE 0.72 mg/dL (0.67-1.17); POTASSIUM 4.4 mmol/L (3.5-5.1)
[2021-08-23 06:41] LABS: BASOPHIL 0.6 % (0-2); EOSINOPHIL 1.3 % (0-5); HGB 13.5 g/dl (13.2-18.0); LYMPHOCYTE 28.1 % (15-48); MCH 31.9 pg (25.0-31.0); MCHC 34.6 g/dL (32.0-36.0); MCV 92.2 fL (78.0-100.0); MONOCYTE 10.3 % (0-12); MPV 10.6 fL (6.0-9.5); NEUTROPHIL 59.6 % (41-80); NRBC 0; PLT 126 K/uL (150-400); RBC 4.23 M/uL (4.70-6.00); RDW 12.9 % (11.5-14.0); WBC 6.7 K/uL (4.0-10.5)
[2021-08-23 07:28] LABS: CREATININE 0.6 mg/dL (0.67-1.17); POTASSIUM 4.4 mmol/L (3.5-5.1)
[2021-08-23] MEDS ORDERED: ONDANSETRON ODT4 MG PO (10:52)
== END 2021-08-23 10:58 | disposition home or self-care (01) | DRG 638 ==
LOC: FER 21:26 → FOFB 08-21 02:31 → FICU 08-21 02:31 → FMS 08-22 16:21
PROVIDERS: Emergency Medicine; Family Medicine; Nurse Practitioner Acute Care; ADMIT Internal Medicine
DX: E10.10 Type 1 diabetes mellitus with ketoacidosis without coma (principal); K86.1 Other chronic pancreatitis; Z20.822 Contact with and (suspected) exposure to COVID-19; I10 Essential (primary) hypertension; E78.5 Hyperlipidemia, unspecified; K21.9 Gastro-esophageal reflux disease without esophagitis; F17.210 Nicotine dependence, cigarettes, uncomplicated; E83.42 Hypomagnesemia; R19.7 Diarrhea, unspecified; Z79.899 Other long term (current) drug therapy
CPT/HCPCS: 36415; 36600; 80048; 80053; 81003; 82607; 82803; 82962; 83036; 83540; 83550; 83690; 83735; 84100; 85025; J1170; J1650; J1815; J2405; J3475; J3480; J7030; J7050; Q0169; U0002

== ENCOUNTER 2021-11-26 18:16 | Inpatient (IN) | payer OTHER ==
[~2021-11-26] VITALS: Ht 185.4 cm; Wt 65.0 kg
[~2021-11-26 18:16] MED LIST changes: +HUMALOG 75100 UNIT/M SC
[2021-11-26 19:37] LABS: BASOPHIL 0.1 % (0-2); EOSINOPHIL 0 % (0-5); HCT 42.8 % (42.0-52.0); HGB 14.9 g/dl (13.2-18.0); LYMPHOCYTE 9.3 % (15-48); MCH 31.2 pg (25.0-31.0); MCHC 34.8 g/dL (32.0-36.0); MCV 89.5 fL (78.0-100.0); MONOCYTE 4.6 % (0-12); MPV 11.7 fL (6.0-9.5); NEUTROPHIL 85.8 % (41-80); NRBC 0; PLT 349 K/uL (150-400); RBC 4.78 M/uL (4.70-6.00); RDW 14.3 % (11.5-14.0)
[2021-11-26 19:38] LABS: WBC 15.2 K/uL (4.0-10.5)
[2021-11-26 19:46] LABS: ALBUMIN 0.9 g/dL (3.4-5.0); BILIRUBIN - TOTAL 4.7 mg/dL (0.2-1.0); BUN/CREAT RATIO (CALC) 9.9 RATIO; CREATININE 2.42 mg/dL (0.67-1.17); GLOBULIN (CALCULATION) 5.2 g/dL; POTASSIUM 3.4 mmol/L (3.5-5.1); TOTAL PROTEIN 6.1 g/dL (6.4-8.2)
[2021-11-26 20:45] LABS: LACTIC ACID 8.9 mmol/L (0.4-1.9)
[2021-11-26] MEDS ORDERED: HUMALOG100 UNIT/1 SC (23:13)
[2021-11-27 00:30] LABS: BILIRUBIN - DIRECT 2.9 mg/dL (0.00-0.20)
[2021-11-27 01:20] LABS: BILIRUBIN 3+ mg/dL (NEGATIVE); BLOOD TRACE-INTACT Ery/uL (NEGATIVE); CLARITY HAZY (CLEAR); COLOR BROWN (YELLOW); GLUCOSE (U) NORMAL (NORMAL); LEUKOCYTES NEGATIVE Leu/uL (NEGATIVE); NITRITE POSITIVE (NEGATIVE); PROTEIN 1+ mg/dL (NEGATIVE); SPECIFIC GRAVITY 1.025 (1.001-1.030); pH 5.5 (5.0-9.0)
[2021-11-27 01:28] LABS: BACTERIA 2+
[2021-11-27 01:52] LABS: ECSTASY (MDMA) NEGATIVE (NEGATIVE); MARIJUANA (THC) POSITIVE (NEGATIVE); METHADONE NEGATIVE (NEGATIVE); OPIATES NEGATIVE (NEGATIVE)
[2021-11-27 01:53] LABS: AMPHETAMINES NEGATIVE (NEGATIVE); BARBITURATES NEGATIVE (NEGATIVE); OXYCODONE NEGATIVE (NEGATIVE)
[2021-11-27 04:35] LABS: CLARITY (FLUID) TURBID; COLOR (FLUID) YELLOW
[2021-11-27 04:37] LABS: RBC (FLUID) 15000 RBC/uL
[2021-11-27 04:38] LABS: WBC (FLUID) 65300 WBC/uL
[2021-11-27 06:35] LABS: BASOPHIL 0 % (0-2); EOSINOPHIL 0 % (0-5); HGB 12.1 g/dl (13.2-18.0); LYMPHOCYTE 4.3 % (15-48); MCH 31.3 pg (25.0-31.0); MCHC 35.6 g/dL (32.0-36.0); MCV 87.9 fL (78.0-100.0); MONOCYTE 2.6 % (0-12); MPV 11.6 fL (6.0-9.5); NEUTROPHIL 90.3 % (41-80); PLT 323 K/uL (150-400); RBC 3.87 M/uL (4.70-6.00); RDW 14.4 % (11.5-14.0)
[2021-11-27 06:37] LABS: NRBC 0; WBC 32.9 K/uL (4.0-10.5)
[2021-11-27 07:14] LABS: ALBUMIN 1.3 g/dL (3.4-5.0); ALKALINE PHOSHATASE 278 U/L (46-116); ALT 50 U/L (16-63); AST 52 U/L (15-37); BILIRUBIN - TOTAL 3.9 mg/dL (0.2-1.0); BUN 23 mg/dL (7-18); BUN/CREAT RATIO (CALC) 9.3 RATIO; CHLORIDE 97 mmol/L (98-107); CO2 (BICARBONATE) 14 mmol/L (21-32); CREATININE 2.46 mg/dL (0.67-1.17); GLOBULIN (CALCULATION) 4.1 g/dL; GLUCOSE 315 mg/dL (74-106); MAGNESIUM 0.9 mg/dL (1.8-2.4); POTASSIUM 2.8 mmol/L (3.5-5.1); TOTAL PROTEIN 5.4 g/dL (6.4-8.2)
[2021-11-27 07:15] LABS: C-REACTIVE PROTEIN > 18.00 mg/dL (<=0.90)
[2021-11-27 11:17] LABS: INR 3.15 (0.9-1.2); PROTHROMBIN TIME 31.3 SECONDS (11.8-13.4)
[2021-11-27 12:41] LABS: BUN/CREAT RATIO (CALC) 8.1 RATIO; CREATININE 2.58 mg/dL (0.67-1.17); POTASSIUM 2.9 mmol/L (3.5-5.1)
[2021-11-27 15:45] LABS: IRON % SATURATION 25.6 %SAT (20-50)
--- NOTE | 2021-11-27 16:45 | NUR ---
SEND BELONGINGS WITH AIR METHODS, BROWN BAG WITH CARDS, PHONE, PRESCHOOL ASSISTANT DIRECTOR,[employer] CONTACTED NIRMAL VICK GIRLFRIEND ABOUT SENDING BELONGINGS
[2021-11-27 16:49] LABS: BUN 20 mg/dL (7-18); BUN/CREAT RATIO (CALC) 7.7 RATIO; CHLORIDE 96 mmol/L (98-107); CO2 (BICARBONATE) 20 mmol/L (21-32); CREATININE 2.61 mg/dL (0.67-1.17); GLUCOSE 186 mg/dL (74-106); MAGNESIUM 1.2 mg/dL (1.8-2.4); POTASSIUM 2.9 mmol/L (3.5-5.1)
--- NOTE | 2021-11-27 16:53 | NUR ---
PT STABLE AT TIME OF TRANSFER TO [facility]. AIR METHODS GIVEN REPORT,BP STABLE AT 125/65 LEVOPHED 113ML/HR VASOPRESIN 1.2UNITS/ML/HR
== END 2021-11-27 17:50 | disposition other institution (70) | DRG 853 ==
LOC: FER 18:16 → FICU 21:54
PROVIDERS: Anesthesiology; Family Medicine; Internal Medicine; Nurse Practitioner Acute Care; Student in an Organized Health Care Education/Training Program; ADMIT Internal Medicine
PROC: 3E033XZ Introduction of Vasopressor into Peripheral Vein, Percutaneous Approach (ICD-10-PCS; 2021-11-26)
PROC: 3E03329 Introduction of Other Anti-infective into Peripheral Vein, Percutaneous Approach (ICD-10-PCS; 2021-11-26)
PROC: 05HY33Z Insertion of Infusion Device into Upper Vein, Percutaneous Approach (ICD-10-PCS; 2021-11-26)
PROC: 8E0ZXY6 Isolation (ICD-10-PCS; 2021-11-26)
PROC: 30233L1 Transfusion of Nonautologous Fresh Plasma into Peripheral Vein, Percutaneous Approach (ICD-10-PCS; 2021-11-27)
PROC: 30233L1 Transfusion of Nonautologous Fresh Plasma into Peripheral Vein, Percutaneous Approach (ICD-10-PCS; 2021-11-27)
PROC: 03HY32Z Insertion of Monitoring Device into Upper Artery, Percutaneous Approach (ICD-10-PCS; 2021-11-27)
PROC: 4A133B1 Monitoring of Arterial Pressure, Peripheral, Percutaneous Approach (ICD-10-PCS; 2021-11-27)
PROC: 4A133J1 Monitoring of Arterial Pulse, Peripheral, Percutaneous Approach (ICD-10-PCS; 2021-11-27)
PROC: 0F9140Z Drainage of Right Lobe Liver with Drainage Device, Percutaneous Endoscopic Approach (ICD-10-PCS; 2021-11-27)
PROC: 0W9G3ZZ Drainage of Peritoneal Cavity, Percutaneous Approach (ICD-10-PCS; 2021-11-27)
PROC: 0W9H40Z Drainage of Retroperitoneum with Drainage Device, Percutaneous Endoscopic Approach (ICD-10-PCS; principal; 2021-11-27 11:00)
DX: A41.9 Sepsis, unspecified organism (principal); R65.21 Severe sepsis with septic shock; U07.1 COVID-19; N17.0 Acute kidney failure with tubular necrosis; E43 Unspecified severe protein-calorie malnutrition; K75.0 Abscess of liver; K65.9 Peritonitis, unspecified; T85.79XA Infection and inflammatory reaction due to other internal prosthetic devices, implants and grafts, initial encounter; D68.9 Coagulation defect, unspecified; N30.01 Acute cystitis with hematuria; R18.8 Other ascites; K86.1 Other chronic pancreatitis; K56.600 Partial intestinal obstruction, unspecified as to cause; E10.649 Type 1 diabetes mellitus with hypoglycemia without coma; K52.9 Noninfective gastroenteritis and colitis, unspecified; E87.6 Hypokalemia; D64.9 Anemia, unspecified; E83.42 Hypomagnesemia; R74.01 Elevation of levels of liver transaminase levels; K76.0 Fatty (change of) liver, not elsewhere classified; K82.8 Other specified diseases of gallbladder; I10 Essential (primary) hypertension; K21.9 Gastro-esophageal reflux disease without esophagitis; E78.5 Hyperlipidemia, unspecified; Z28.310 Unvaccinated for COVID-19; Z98.890 Other specified postprocedural states; Z79.899 Other long term (current) drug therapy; Z87.891 Personal history of nicotine dependence; Z83.3 Family history of diabetes mellitus; Z83.1 Family history of other infectious and parasitic diseases
CPT/HCPCS: 36415; 36600; 71045; 80048; 80053; 80305; 81001; 82009; 82248; 82607; 82728; 82803; 82945; 82977; 83540; 83550; 83605; 83690; 83735; 84145; 84484; 85025; 85610; 86140; 86850; 86900; 86901; 87040; 87070; 87075; 87088; 87205; 89051; 93005; 94002; 94010; 94640; 94760; 94762; 96361; 96365; 96375; 96376; C1751; J0780; J1100; J1170; J2185; J2370; J2405; J2543; J2704; J3010; J3370; J3475; J3480; J7030; J7050; J7120; P9017; P9047; U0002

== ENCOUNTER 2021-12-31 11:30 | Emergency (ER) | payer OTHER ==
[~2021-12-31 11:30] MED LIST changes: +HUMALOG100 UNIT/1 SC
[2021-12-31] MEDS ORDERED: CREON 12,000 U1 EACH PO (12:18)
[2021-12-31 13:01] LABS: BASOPHIL 0.3 % (0-2); EOSINOPHIL 0.1 % (0-5); HCT 25.7 % (42.0-52.0); HGB 8.5 g/dl (13.2-18.0); LYMPHOCYTE 14.6 % (15-48); MCH 31.4 pg (25.0-31.0); MCHC 33.1 g/dL (32.0-36.0); MCV 94.8 fL (78.0-100.0); MONOCYTE 8.6 % (0-12); MPV 9.8 fL (6.0-9.5); NEUTROPHIL 75.5 % (41-80); NRBC 0; PLT 298 K/uL (150-400); RBC 2.71 M/uL (4.70-6.00); RDW 16.6 % (11.5-14.0); WBC 19.2 K/uL (4.0-10.5)
[2021-12-31 13:06] LABS: INR 1.39 (0.9-1.2); PROTHROMBIN TIME 16.6 SECONDS (11.9-13.9); PTT 39.1 SECONDS (24.9-34.6)
[2021-12-31 13:17] LABS: LACTIC ACID 2.2 mmol/L (0.4-1.9)
[2021-12-31 13:20] LABS: ALBUMIN 2.3 g/dL (3.4-5.0); BUN/CREAT RATIO (CALC) 7.7 RATIO; CREATININE 0.65 mg/dL (0.67-1.17); GLOBULIN (CALCULATION) 6.7 g/dL; POTASSIUM 2.7 mmol/L (3.5-5.1)
[2021-12-31 17:37] LABS: BILIRUBIN NEGATIVE (NEGATIVE); BLOOD TRACE-INTACT Ery/uL (NEGATIVE); CLARITY CLEAR (CLEAR); COLOR YELLOW (YELLOW); GLUCOSE (U) NORMAL (NORMAL); LEUKOCYTES NEGATIVE Leu/uL (NEGATIVE); NITRITE NEGATIVE (NEGATIVE); PROTEIN 1+ mg/dL (NEGATIVE); SPECIFIC GRAVITY <=1.005 (1.001-1.030); UROBILINOGEN 0.2 mg/dL (0.2-1.0)
[2021-12-31 18:17] LABS: SQUAMOUS EPITHELIAL CELLS RARE
== END 2021-12-31 19:30 | disposition other institution (70) ==
LOC: FER 11:30
PROVIDERS: Physician Assistant
DX: A41.9 Sepsis, unspecified organism (principal); K75.0 Abscess of liver; E87.6 Hypokalemia; E83.42 Hypomagnesemia; D64.9 Anemia, unspecified; E10.9 Type 1 diabetes mellitus without complications; I10 Essential (primary) hypertension; F17.210 Nicotine dependence, cigarettes, uncomplicated; Z28.310 Unvaccinated for COVID-19
CPT/HCPCS: 36415; 71045; 80053; 81001; 83605; 83690; 83735; 84145; 85025; 85610; 85730; 87040; C9113; J1170; J2405; J2543; J3475; J3480; J7030

== ENCOUNTER 2022-02-08 18:24 | Emergency (ER) | payer OTHER ==
[2022-02-08 21:14] LABS: BASOPHIL 0.8 % (0-2); HCT 28.9 % (42.0-52.0); HGB 9.6 g/dl (13.2-18.0); LYMPHOCYTE 58.5 % (15-48); MCH 30.4 pg (25.0-31.0); MCHC 33.2 g/dL (32.0-36.0); MCV 91.5 fL (78.0-100.0); MONOCYTE 5.8 % (0-12); MPV 9.1 fL (6.0-9.5); NEUTROPHIL 31.4 % (41-80); NRBC 0; PLT 355 K/uL (150-400); RBC 3.16 M/uL (4.70-6.00); RDW 14.7 % (11.5-14.0)
[2022-02-08 21:32] LABS: ALBUMIN 1.9 g/dL (3.4-5.0); BILIRUBIN - TOTAL 0.2 mg/dL (0.2-1.0); BUN/CREAT RATIO (CALC) 11.1 RATIO; CREATININE 0.81 mg/dL (0.67-1.17); POTASSIUM 3.4 mmol/L (3.5-5.1); TOTAL PROTEIN 6.9 g/dL (6.4-8.2)
[2022-02-08 21:50] LABS: WBC 10.9 K/uL (4.0-10.5)
[2022-02-08] MEDS ORDERED: AMOX TR-K CLV1 EAC4 PO (23:48)
== END 2022-02-09 00:05 | disposition home or self-care (01) ==
LOC: FER 18:24
PROVIDERS: Emergency Medicine
DX: T85.628A Displacement of other specified internal prosthetic devices, implants and grafts, initial encounter (principal); E10.9 Type 1 diabetes mellitus without complications; F17.200 Nicotine dependence, unspecified, uncomplicated; Z28.310 Unvaccinated for COVID-19
CPT/HCPCS: 36415; 80053; 83690; 85025; J2270; J7030; Q9967

== ENCOUNTER 2022-02-28 12:43 | Emergency (ER) | payer OTHER ==
[~2022-02-28 12:43] MED LIST changes: +AMOX TR-K CLV1 EAC4 PO
[2022-02-28 13:22] LABS: BASOPHIL 0.6 % (0-2); EOSINOPHIL 0.6 % (0-5); HCT 40.6 % (42.0-52.0); HGB 13.5 g/dl (13.2-18.0); LYMPHOCYTE 28.5 % (15-48); MCH 30.9 pg (25.0-31.0); MCHC 33.3 g/dL (32.0-36.0); MCV 92.9 fL (78.0-100.0); MONOCYTE 8.8 % (0-12); MPV 8.9 fL (6.0-9.5); NEUTROPHIL 61.1 % (41-80); NRBC 0; PLT 223 K/uL (150-400); RBC 4.37 M/uL (4.70-6.00); RDW 16.2 % (11.5-14.0); WBC 9.9 K/uL (4.0-10.5)
[2022-02-28 13:39] LABS: INR 0.97 (0.9-1.2); PROTHROMBIN TIME 12.6 SECONDS (11.9-13.9); PTT 28.3 SECONDS (24.9-34.6)
[2022-02-28 13:41] LABS: BILIRUBIN NEGATIVE (NEGATIVE); BLOOD 3+ Ery/uL (NEGATIVE); CLARITY CLEAR (CLEAR); COLOR YELLOW (YELLOW); GLUCOSE (U) TRACE mg/dL (NORMAL); LEUKOCYTES NEGATIVE Leu/uL (NEGATIVE); NITRITE NEGATIVE (NEGATIVE); PROTEIN 2+ mg/dL (NEGATIVE); SPECIFIC GRAVITY >=1.030 (1.001-1.030); UROBILINOGEN 0.2 mg/dL (0.2-1.0)
[2022-02-28 13:45] LABS: AMPHETAMINES NEGATIVE (NEGATIVE); BARBITURATES NEGATIVE (NEGATIVE); ECSTASY (MDMA) NEGATIVE (NEGATIVE); MARIJUANA (THC) POSITIVE (NEGATIVE); METHADONE NEGATIVE (NEGATIVE); OPIATES NEGATIVE (NEGATIVE); OXYCODONE NEGATIVE (NEGATIVE)
[2022-02-28 13:51] LABS: ALBUMIN 2.5 g/dL (3.4-5.0); BILIRUBIN - TOTAL 0.5 mg/dL (0.2-1.0); BUN/CREAT RATIO (CALC) 12.2 RATIO; CREATININE 0.74 mg/dL (0.67-1.17); GLOBULIN (CALCULATION) 5.3 g/dL; POTASSIUM 4.1 mmol/L (3.5-5.1); TOTAL PROTEIN 7.8 g/dL (6.4-8.2)
[2022-02-28 14:03] LABS: URINARY RBC TNTC
[2022-02-28 14:05] LABS: BACTERIA 1+
[2022-02-28 14:26] LABS: CORONAVIRUS 2019 SARS-COV-2 NEGATIVE (NEGATIVE); INFLUENZA A NAA NEGATIVE (NEGATIVE)
== END 2022-02-28 18:45 | disposition other institution (70) ==
LOC: FER 12:43
PROVIDERS: Nurse Practitioner Family
DX: I63.9 Cerebral infarction, unspecified (principal); R47.01 Aphasia; F17.200 Nicotine dependence, unspecified, uncomplicated; Z20.822 Contact with and (suspected) exposure to COVID-19
CPT/HCPCS: 36415; 70450; 72125; 80053; 80305; 81001; 82150; 83690; 85025; 85610; 85730; 93005; J7030; Q9967; U0002